=== PATIENT | female | born 1995 | race Caucasian/White ===

== ENCOUNTER → 2016-08-05 | Day surgery (SDC) | payer OTHER ==
[~2016-08-05] MED LIST: DEXL60CA2 PO; HYDR-2758 PO; IV RINGERS,LACTATED 1000ML 1,000 ML IV SCH; LACT1CAP8 PO; ONDA4TAB10 SL; POLY17PO29 PO; PROPOFOL 0 ML IV ONE; PROPOFOL 60 ML IV ONE; TETRACAINE 0.5% OPHTH SOLUTION 4ML BOTTLE. OS PRN; WHEA1POW8 PO
[2016-08-05 10:54] LABS: NEG OBC UR NEG; POS OBC UR POS
--- NOTE | 2016-08-05 11:58 | PDOC ---
Date and Time Post op complaint of pain Left eye. L eye red Suspect corneal abrasion during waking up. Rx Tetracaine. Notify opth if not resolved by tomorrow. Current Medications Current Medications Ringer's Solution 1,000 ml @ 50 mls/hr Q20H IV Last administered on 08/05/16t 10:55; Start 08/04/16 at 17:27; Stop 08/05/16 at 05:26; Status DC Propofol 0 ml @ As Directed STK-MED ONCE IV ; Start 08/05/16 at 11:03; Stop at 11:04; Status DC Propofol 60 ml @ As Directed STK-MED ONCE IV ; Start 08/05/16 at 11:03; Stop at 11:04; Status DC Active Scripts Active Reported Miralax (Polyethylene Glycol 3350) 17 Gm Powd.pack 1 Packet PO DAILY PRN Zofran Odt (Ondansetron) 4 Mg Tab.rapdis 1 Tab SL Q8HRS PRN Hydrocodone-Apap 5-325 (Hydrocodone Bit/Acetaminophen) 1 Each Tablet 1 Tab PO PRN Q6HRS PRN Dexilant (Dexlansoprazole) 60 Mg Cap.drClementmp 1 Cap PO DAILY Benefiber (Wheat Dextrin) 1 Each Powd.pack 1 Each PO DAILY Probiotic (Lactobacillus Combo No.11) 1 Each Cap.sprink 1 Each PO DAILY Pertinent Labs/Test Laboratory Tests Test 08/05/16 10:33 Urine Test Negative (NEG) Laboratory Tests Test 08/05/16 10:33 Urine Test Negative (NEG) LAST VITALS Vital Signs Date Time Temp Pulse Resp B/P (MAP) Pulse Ox O2 Delivery O2 Flow Rate FiO2 08/05/16 11:37 97.7 77 20 144/63 95 Nasal Cannula 2.0 97.7 NIK HERNANDES MD Aug 05, 2016 11:58
[2016-08-05 12:07] VITALS: BP 115/65
--- NOTE | 2016-08-06 14:33 | PATHOLOGY ---
PATHOLOGY REPORT * * * * * * * * FINAL DIAGNOSIS: A. Small bowel biopsy: - No significant pathologic abnormalities. B. Gastric biopsy, antrum: - Consistent with reactive gastropathy. C. Esophageal biopsy, distal esophagus: - Segments of gastric mucosa showing congestion and focal slight chronic inflammation. D. Terminal ileum biopsy: - No significant pathologic abnormalities, with mucosal-associated lymphoid tissue. E. Right colon biopsies: - No significant pathologic abnormalities, with several focally hyperplastic mucosal-associated lymphoid aggregates. F. Left colon biopsies: - No significant pathologic abnormalities, with focal superficial mucosal epithelial hyperplastic changes. COMMENT: Sections of the small bowel biopsy reveal segments of duodenal and small intestine mucosa with focally prominent submucosal Sivakumar's glands. Where best oriented the mucosal villi appear normal. There are no sprue-like changes or significant inflammatory changes. Sections of the gastric antral biopsy show congestion, foveolar hyperplasia, and only focal slight chronic inflammation. An immunoperoxidase stain for Helicobacter is obtained. No Helicobacter organisms are identified. Sections of the distal esophageal biopsy reveal segments of gastric mucosa showing focal slight chronic inflammation. There is no squamous esophageal mucosa. There is no evidence of Valentino's change, dysplasia, or malignancy. Sections of the terminal ileum biopsy reveal segments of small intestine mucosa focally containing mucosal associated lymphoid tissue. There are no sprue-like changes or significant inflammatory changes. Sections of the right colon and left colon biopsies show no evidence of a chronic destructive colitis, lymphocytic colitis, or collagenous colitis. (JPM:; d/t: 08/06/16) Special Stain Performed: Immunoperoxidase stain for Helicobacter (B1) REPORT ELECTRONICALLY SIGNED BY: Crow Solis M.D. DATE/TIME: 08/06/2016 14:32 * * * * * * * * GROSS PATHOLOGY: A. Received in formalin labeled "[place], [place], small bowel," are 5 segments of spears soft tissue measuring from 0.1 to 0.3 cm in maximum dimension. The specimen is submitted entirely in cassette A1. B. Received in formalin labeled "gastric antrum," is a segment of spears soft tissue measuring 0.4 cm in maximum dimension. The specimen is submitted entirely in cassette B1. C. Received in formalin labeled "distal esophagus," are two segments of spears soft tissue each measuring from 0.3 cm in maximum dimension. The specimen is submitted entirely in cassette C1. D. Received in formalin labeled "terminal ileum," are two segments of spears soft tissue each measuring from 0.3 cm in maximum dimension. The specimen is submitted entirely in cassette D1. E. Received in formalin labeled "right colon," are multiple segments of spears soft tissue measuring from 0.1 to 0.3 cm in maximum dimension. The specimen is submitted entirely in cassette E1. F. Received in formalin labeled "left colon," are three segments of spears soft tissue measuring from 0.2 to 0.3 cm in maximum dimension. The specimen is submitted entirely in cassette F1. (JPM; 08/05/16) INITIAL CPT CODE(S): A; 24752 B; 80618, 05265 C; 69716 D; 02682 E; 17006 F; 84322 Professional services [place] [address] Technical services performed by [facility] at [address] [place] [address], [place] [address]. SPECIMEN(S) RECEIVED: A.Small bowel biopsy B.Gastric antrum C.Distal esophagus D.Terminal ileum E.Right colon F.Left colon CLINICAL HISTORY: Abdominal pain; gastritis PATIENT: ILIANA OSORIO /AGE: 911/20/1995 (Age: 20) PATIENT #: [id number] ALT CASE #: SPECIMEN COLLECTION DATE: 08/05/2016 SPECIMEN RECEIVED DATE: 08/05/2016 [facility] - [address] [place] [address] - PHONE: [phone] * * * END OF REPORT * * *
== END | disposition home or self-care (01) ==
LOC: ENDOS 10:20
PROVIDERS: ATTEND Internal Medicine Gastroenterology
DX: K64.0 First degree hemorrhoids (principal); K63.89 Other specified diseases of intestine; K21.0 Gastro-esophageal reflux disease with esophagitis; K29.70 Gastritis, unspecified, without bleeding; F41.9 Anxiety disorder, unspecified; F32.9 Major depressive disorder, single episode, unspecified; Z82.49 Family history of ischemic heart disease and other diseases of the circulatory system; Z72.89 Other problems related to lifestyle; F17.210 Nicotine dependence, cigarettes, uncomplicated
CPT/HCPCS: 43239; 45380; 81025; 88305; 88342; J2704